=== PATIENT | male | born 1980 | race Caucasian/White ===

== ENCOUNTER 2016-10-27 19:48 | Inpatient (IN) | payer OTHER ==
[~2016-10-27] VITALS: Ht 177.8 cm; Wt 116.3 kg
[2016-10-27] MEDS ORDERED: Polyethylene Glycol (PEG) 17 Gm Powder PO PRN (21:20)
[2016-10-27] MEDS ORDERED: Senna-Docusate 8.6-50 mg Tablet PO PRN (21:20)
[2016-10-27] MEDS ORDERED: Alum-Mag Hydrox-Simeth 30 mL Suspension PO PRN (21:20)
[2016-10-27] MEDS ORDERED: DOPamine 800 mg/250 mL D5W 800,000 MCG in IV Premix 1 EACH IV SCH (21:25)
[2016-10-27] MEDS: DOPamine 800 mg/250 mL D5W 800,000 MCG in IV Premix 1 EACH IV SCH (21:26)
[2016-10-27 21:30] VITALS: BP 151/64; PULSE 72; RESP 18; O2SAT 95
[2016-10-27] MEDS ORDERED: MONT10TA23 PO (22:46)
[2016-10-27] MEDS ORDERED: FLUT15.88 NS (22:46)
[2016-10-27] MEDS ORDERED: ALBU8.5H2 INHALATION (22:46)
[2016-10-27] MEDS ORDERED: [UNRECOGNIZED DRUG - OTHER] PO (22:46)
[2016-10-27] MEDS ORDERED: MELO-253 PO (22:46)
[2016-10-27] MEDS ORDERED: ADV250INH IH (22:46)
[2016-10-27] MEDS ORDERED: LORA10CA PO (22:46)
[2016-10-27] MEDS ORDERED: [UNRECOGNIZED DRUG - OTHER] PO (22:46)
--- NOTE | 2016-10-27 23:21 | PCM.HPMED ---
Subjective Date of Service Oct 27, 2016 Primary Provider: Admitting Physician: Kevin Sanchez MD Primary Care Physician: Ananda Vang Attending Physician: Kevin Sanchez MD Admit Status: Direct Admit ([facility]) Chief Complaint: AV Block and syncopal episode History of Present Illness: Attial Paige is a 36 year old gentleman with a history of sleep apnea and asthma who presented to [facility] after a syncopal episode and was transferred to [facility] for further evaluation and management of AV Block. History obtained from the patient and via chart review. Patient denies prior history of syncope, chest pain or palpitations and states that this all happened quite suddenly. He states that around 2 pm he was at home playing video games when he developed what felt like a panic attack. He reports palpitations and chest discomfort and states that he stood up to go tell his and must have passed out. Because the next thing he remembers is lying on the floor. He denies loss of bladder or bowel control and reports some residual chest discomfort as well as mild pain related to an abrasion he sustained on his forehead. Denies fever, chills, dyspnea, focal weakness, abdominal pain, nausea, vomiting, diarrhea, constipation, dysuria, hematuria, unintentional weight loss or gain, and intolerance to heat or cold. He states that he recently returned from a road trip to [place] but otherwise has not traveled outside the [facility] or country recently. He reports rare/social alcohol use and denies marijuana or any other drugs. He does however report significant caffeine consumption: 6 cups of coffee per day mixed with protein powder and 1- 2 cans of soda. Denies energy drinks or additional caffeine intake. Of note he does report supplements for working out including: [employer]cle pharm assault, protein powder, and a new fat burner capsule for the past week but he is uncertain of the name. The patient reportedly had another syncopal episode in the ED prior to transfer and telemetry showed both extreme sinus jenny to a HR 30 but also a significant period of only P waves with no QRS and Dr. Ritter from Cardiology was consulted. Patient was started on dopamine prior to transfer as isoproterenol was not available. He was afebrile and hemodynamically stable prior to transfer with a BP of 131/59 and HR in the 60s. However, in route to [facility] the patient had recurrent symptomatic pauses noted on tele. LABS and IMAGING done prior to transfer were overall unremarkable. Troponin I and D-dimer negative. CBC, CMP and lipase within normal limits. Chest xray was normal and a cervical spine radiograph to evaluate neck pain secondary to the fall was also normal. EKG showed a NSR with rate 61, prolonged MN, normal QRS and no ST changes. Telemetry strip was significant for 3rd degree AVB and 10-15 sec pauses with only P waves with no QRS. Review of Systems: A comprehensive review of systems was conducted with the patient and found to be negative except as above in the History of Present Illness. Allergies Coded Allergies: No Known Allergies (Unverified , 10/27/16) Home Medications Albuterol Advair Cetirizine PMH Asthma-well controlled w/Advair & Albuterol Sleep apnea, intolerant to CPAP mask Pneumonia Surgical History Hypospadias repair Tympanostomy tubes Family History Denies family hx of heart disease, stroke, diabetes or cancer. Father- atrial fibrillation Mother- rheumatoid arthritis Brother- healthy Social History Hx Alcohol Use: Yes (Rarely) Hx Substance Use: No Hx Tobacco Use: No Smoking Status: Never Smoker Living Arrangement: with Family (Lives on [address] [facility] with his and two children. Works in [place] for the [employer]. ) Exam Vital Signs Per review of ED records from [facility] prior to transfer: Vitals 36.6 BP 131/59; 97/52, HR 67, 63, SpO2 94-99% room air Exam General: Well-appearing, overweight male who appears his stated age, in no acute distress, appropriately interactive HEENT: Normocephalic with a small erythematous area left side of forehead.PERRLA. No scleral icterus. Moist mucosa. Neck: Supple with full range of motion. No jugular venous distension, bruits or thyromegaly. Cardiovascular: Regular rate and rhythm with no murmurs, rubs, or gallops appreciated Pulmonary: Lungs mostly clear to auscultation bilaterally with faint wheezes heard on the left. No crackles. Abdomen: Bowel tones present. Soft, nontender, nondistended. No masses appreciated. Extremities: No edema, cyanosis or clubbing. Distal pulses equal bilaterally. Skin: Normal temperature, turgor, and texture with out rash or ulcerations. Neurological: CN II-XII grossly intact. Normal muscle strength, tone, and bulk. Reflexes, coordination, and sensory function within normal limits. No known gait impairment. Psychiatric: Normal mood and affect. Alert and oriented to person, place, and time. Lab and Diagnostics Labs LABS done at [facility] prior to transfer: CBC: WBC 6.4, RBC 4.75, Hb 15.3, Hct 43.2, MCV 91.0, Plt 166, Neut 3.4, Lymph 2.2, [place] 0.7, Eos 0.1 CMP: Sodium 137, potassium 4.1, chloride 103, bicarb 28, BUN 21, Creatinine 1.2 , eGFR 68, glucose 103, calcium 9.5, total bilirubin 0.9, AST 58, ALT 56, Albumin 5.0 troponin I < 0.04 Lipase 34 D-dimer < 200 (ref 200-255) X-Rays, CTs and MRIs IMAGING done at [facility] prior to transfer: Chest xray- 10/27/16 at 06:43pm: Normal chest xray. Cervical spine xray 10/27/16 06:43pm: Normal cervical spine radiograph 12-lead ECG EKG and telemetry readings at [facility]: EKG- 18:27: NSR with rate of 61, prolonged MN interval with normal QRS and no ST changes. Telemetry rhythm strip showed a 3rd degree AVB and 15sec pauses with only P waves and no QRS. Patient was reportedly symptomatic during these pauses. Assessment & Plan 36 year old gentleman with a history of sleep apnea and asthma transferred to [facility] for further evaluation and management of AV Block. AV Block. Present on admission. Active -Uncertain etiology. Possibilities to consider include: hyper- or hypothyroid, HCM or infiltrative cardiomyopathies, such as amyloidosis or sarcoidosis, and myocarditis due to a variety of causes including Lyme disease. Less likely ischemic in pt with low risk for CAD. Pt does have mother with rheumatoid arthritis. -Cardiology consulted from [facility]. Appreciate recommendations and expertise. -ECG, labs as above -Admitted to CCU on dopamine gtt and continuous cardiac monitoring -Pacer pads in place -NPO for possible procedures -Will check thyroid panel, Lyme's antibody Syncope, acute. Present on admission. Active -Secondary to heart block. -Monitoring and management as above Sleep apnea, chronic. Present on admission. Active. -Pt reports diagnosis ~9years ago, intolerant to CPAP mask. Has been trying to loose weight. -Continue supplemental oxygen as needed -Recommend close outpatient f/u and possible repeat sleep study. Asthma, chronic. Present on admission. Active. -Pt reports diagnosis of asthma in his early 20s, well controlled with Advair and Albuterol. Also reports seasonal allergies for which he takes Zyrtec. -Continue home inhaler -Supplemental oxygen as needed Hypertension. Present on admission. Active -Pt denies prior diagnosis or hx of hypertension. BP on arrival 150s systolic. -Continue cardiac/BP monitoring. -Hold additional antihypertensives for now -Appreciate Cardiology input and recommendations CODE STATUS: FULL CODE FEN: NPO for possible procedures IVF: NS at 100mls/hr DVT Prophylaxis: Sub-q Heparin, 5,000units Q8h PRN: Acetaminophen-fever/headache/mild/moderate pain Antiemetics, as needed Bowel regimen, as needed. Disposition: Patient admitted under inpatient status with expected length of stay > 2 midnights for severity of present symptoms, complexities of treatment plan and risk for adverse event. Pain Evaluation: Adequate Pain Control GI Prophylaxis: Not indicated VTE Prophylaxis Indicated: Meets Criteria for Anticoag Therapy VTE Prophylaxis: Sub-Q Heparin (Unfractionated) Resuscitation Status: CPR: Attempt Resuscitation Time spent 50 minutes critical care time spend Attending Statement The patient was seen and examined together with Dr. Chapa on 10/27 and I agree with the history, exam and plan as outlined in the note above. Nuzhat Chapa DO Oct 27, 2016 21:28 Kevin Sanchez MD Oct 28, 2016 04:38 Nuzhat Chapa DO Oct 27, 2016 21:28
[2016-10-28] VITALS (9 sets, daily range): BP systolic 109–131; BP diastolic 46–64; PULSE 53–67; RESP 15–19; O2SAT 95–98
[2016-10-28] MEDS: Heparin 5,000 Unit/mL Inj SUBQ SCH ×3 (00:30→16:34)
[2016-10-28] MEDS ORDERED: DOPamine 800 mg/250 mL D5W 800,000 MCG in IV Premix 1 EACH IV SCH (01:15)
[2016-10-28 03:14] LABS: BASOPHILS % (AUTO) 0.2 % (0-3)
[2016-10-28 03:23] LABS: EOSINOPHILS % (AUTO) 1.2 % (0-5); MONOCYTES % (AUTO) 11.5 % (4-12); Mean Corpuscular Hemoglobin 31.9 pg (27.0-35.0); NEUTROPHILS % (AUTO) 64.7 % (40-74); Platelet Count 191 bil/L (150-400)
--- NOTE | 2016-10-28 07:31 | NUR ---
CCU Admit Pt arrived from [facility] to CCU # [id number] approx at 2114. Pt A&O x3. Dopamine was infusing at 4 mcg. VSS. Dopamine off since 2299. No bradycardia or pauses noted. Admission assessment and screening completed. Med-Rec updated. Spouse at the bedside throughout the NOC providing support and comfort. No overt complications noted.
--- NOTE | 2016-10-28 09:55 | DRSVH ---
[facility] [address] [place] [address] Echocardiogram Report Name: MAAME CORNEJO WStudy Date: 10/28/2016 Height: 70 in Hospital Exam Location: [facility] Weight: 253 lb Gender: Male BSA: 2. 3 m2 : 1980 Age: 36 yrs BP: 121 /61 mmHg Reason For Study: AV BLOCK Ordering Physician: Lesley Fairbanks Performed By: Vikki Neil Referring Physician: DEACON BRIZUELA Interpretation Summary There is mild concentric left ventricular hypertrophy. Left ventricular systolic function is normal without focal wall motion abnormalities. The ejection fraction is estimated to be 55-60%. Assessment of diastolic parameters indicates normal left ventricular diastolic function and normal filling pressures. The right ventricle is normal in size, thickness and function. The right ventricular systolic pressure is estimated at least 29 mmHg assuming a right atrial pressure of 8 mm Hg. The left atrium is mildly dilated. The right atrium is mildly dilated. There is no significant valvular heart disease. The aortic root is normal size. Procedure: A two-dimensional transthoracic echocardiogram with color flow and Doppler was performed. The study quality was technically good. There is no prior echocardiogram noted for this patient. The patient was in normal sinus rhythm during the exam. Left Ventricle: The left ventricle is normal in size. There is mild concentric left ventricular hypertrophy. Left ventricular systolic function is normal without focal wall motion abnormalities. The ejection fraction is estimated to be 55-60%. Assessment of diastolic parameters indicates normal left ventricular diastolic function and normal filling pressures. Right Ventricle: The right ventricle is normal in size, thickness and function. Atria: The left atrium is mildly dilated. The right atrium is mildly dilated. There is no Doppler evidence for an interatrial shunt. Mitral Valve: The mitral valve is normal in structure and function. There is trace mitral regurgitation. Aortic Valve: The aortic valve is normal in structure and function. No aortic regurgitation is present. Tricuspid Valve: The tricuspid valve is normal. There is trace tricuspid regurgitation. The right ventricular systolic pressure is estimated at least 29 mmHg assuming a right atrial pressure of 8 mm Hg. Pulmonic Valve: The pulmonic valve leaflets are thin and pliable; valve motion is normal. There is a trace or physiologic amount of pulmonic regurgitation. There is no significant valvular heart disease. Great Vessels: The aortic root is normal size. The ascending aorta is normal in size. The aortic arch is normal in size. The pulmonary artery is not well visualized, but is probably normal size. The IVC is dilated (diameter is greater than 2.1 cm) yet it collapses greater than 50% with a sniff. This suggests a right atrial pressure of 8 mm Hg. Pericardium/ Pleura There is no pericardial effusion. There is no pleural effusion. MMode/2D Measurements & Calculations LVIDd: 4.9 cm RA long axis LVOT diam: 2.1 cm LVIDs: 3.1 cm LA A2 area: 24.6 cm AoV Opening FS: 36.5 % LA A4 area: 23.1 cm RA area EPSS: 0.12 cm LA length (vol) Ao root diam IVSd: 1.0 cm : 21.3 cm LVPWd: 1.3 cm LA vol: 91.1 ml RA vol asc Aorta Diam LA vol index : 80.1 ml RA Ao Arch Diam (Prox : 34.7 mm2 Trans): 2.7 cm IVC diam: 2.2 cm LV grant. diameter/BSA LV sys. diameter/BSA RVD1 (basal) RVD2 (mid): 3.5 cm (cm/m^2): 2.1 (cm/m^2): 1.3 TAPSE: 2.6 cm Doppler Measurements & Calculations Ao V2 max MV E max sampson MV E/A: 2.3 TR max sampson : 111.8 cm/sec : 106.6 cm/sec Med Peak E' Sampson : 230.9 cm/sec Ao max PG MV A max sampson TR max PG : 5.0 mmHg : 46.8 cm/sec E/E' med: 8.4 : 21.3 mmHg Ao mean PG MV P1/2t: 60.2 msec Lat Peak E' Sampson PA V2 max : 89.9 cm/sec LVOT Max Sampson E/E' lat: 5.6 PA mean PG : 97.7 cm/sec E/e' average: 7.0 : 1.7 mmHg CAROLINE(I,D): 2.9 cm sev ratio MV dec time MV P1/2t max sampson Ao V2 mean LV V1 max PG : 0.21 sec : 77.1 cm/sec MVA(P1/2t): 3.7 cm2 Ao V2 VTI: 24.2 cm LV V1 VTI CAROLINE(V,D): 3.0 cm2 : 20.4 cm PA V2 mean CAROLINE indexed to BSA : 60.9 cm/sec (cm^2/m^2): 1.3 PA pr(Accel) : 21.2 mmHg Reading Physician:ERIN
--- NOTE | 2016-10-28 10:23 | NUR ---
Social Work: Initial Assessment/Multidisciplinary Rounds D: Per EMR review, pt is a 36 year old male admitted for complete heart block syncope. Pt is [employer] insurance; pt has no LTC or VA benefits. PCP is through the [facility]. NOK is Yumiko Paige, , . Advanced directives completed- EEG TECHNOLOGIST requested copy for chart. Readmit score not entered at this time. Pt discussed in multidisciplinary rounds. Pt is on day 1 of stay. Capacity for self-care and d/c needs addressed; no concerns or d/c needs identified at this time. Pt is [employer] according to MD and is I at baseline. EEG TECHNOLOGIST met with the patient at bedside. Sw role explained; contact information and discharge planning checklist provided. Pt lives in [place] with his spouse and family. Pt is I at baseline, uses no DME and continues to drive. Pt has never had HH or skilled rehab. Pt lives in a two story home with several steps to enter. Pt and spouse anticipate no discharge needs but are receptive to d/c planning if needed. A: pt who is I at baseline. P: Anticipate discharge home via POV and no sw needs. EEG TECHNOLOGIST to continue to follow to assess for unmet d/c needs. MALIK Serra Addendum: 10/28/16 at 1035 by RAFAELA PEREZ Amended: Links added.
--- NOTE | 2016-10-28 10:35 | CONS ---
[address] [address] CONSULTATION REPORT PATIENT: MAAME CORNEJO : 1980 MR#: [id number] ADMIT: 10/27/2016 JOB ID: [id number] DATE OF SERVICE: 10/28/2016 SUBJECTIVE: The patient is a pleasant 36-year-old gentleman transferred from [facility] following recurrent episodes of syncope associated with both sinus node and AV node dysfunction. The patient has no past known cardiac history and has been generally very fit and physical treated for asthma predominantly with a number of medications. 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 This passed without event, and he attributed it to possible panic attack which he has had in the remote past. Yesterday afternoon he was feeling well and was playing video games with his kids when he developed a sense of mild nausea, generalized weakness, and a sense of precordial pressure-like chest discomfort. This did not feel similar to the event the previous day, but it was concerning enough that he got up to go upstairs to tell his , but became immediately syncopal. He woke up having just fallen to the floor and was feeling fine without any residual nausea or diaphoresis, but with a sense of mild precordial pressure-like chest discomfort. He spoke to his about it and had told her about the episode the prior day and for that reason, she took him to the emergency department at [facility]. The patient was attached to the monitor in the emergency department and stated that he asked his to leave and his child to leave because he could feel another episode coming on. He transiently lost consciousness and telemetry reports show sudden onset of a profound sinus bradycardia followed by a transient third degree heart block and resolution in normal sinus rhythm. Again this was preceded by a sense of precordial pressure-like discomfort and general weakness and a washed out feeling. He did not report symptoms of nausea during that episode and there was no apparent trigger. The decision was made to transport him by ambulance to [facility] and in the ambulance he had several episodes of near syncope associated with transient profound bradycardia, but by that time had been started up on dopamine therapy since Isuprel was not available there. Late last night his dopamine was discontinued. He has had no recurrent events or dysrhythmias through the night and feels well today, although continues to be aware of a mild sense of pressure-like substernal and precordial chest discomfort. The patient returned about three weeks ago from a vacation in [place]. There was a history of bug bites and whether not he had in fact actual erythema migrans is not clear. What is also not clear is whether or not he had any kind of febrile illness. He denies any problems with transient neurologic dysfunction, although he had a brief headache after he was syncopal at home associated with a slight rug burn on his face. He has had no arthralgias and no other neurologic symptoms. The patient is quite active physically. He lifts weights every morning. 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 The [employer] has him enrolled in an aerobic exercise program because they feel he is somewhat overweight, and he has been doing fairly strenuous aerobic exercises on a daily basis at the [employer] and is able to do so without exertional chest discomfort, lightheadedness, or significant symptoms of dyspnea. REVIEW OF SYSTEMS: Completely normal otherwise. He has had no bowel complaints. No genitourinary or renal problems. No arthralgias. No central nervous system changes. No prior history of syncope and no prior history of any cardiac symptomatology. He has just started a "fat burner capsule" about a week ago which is the only new medication for him, but we have looked up the ingredients in that and find no obvious cause for his transient bradyarrhythmias. PHYSICAL EXAMINATION: Shows a healthy-appearing muscular a 36-year-old male. He is 5 feet 10 inches tall and weighs 253 pounds, body mass index of 36.23. HEENT examination is notable for male pattern balding, otherwise negative. His jugular venous pressure is normal. His carotid upstroke is normal with no bruits. Lung thomas are clear. Cardiac auscultation is unremarkable. Heart tones are normal. No cardiac murmurs. No pericardial friction rub. Abdomen is soft, nontender. Normal bowel tones. Distal extremities are warm and well perfused. Distal pedal pulses are normal. He has no edema. No focal musculoskeletal or neurologic findings identified. DIAGNOSTIC STUDIES: Laboratory is notable for a mild increase in creatinine. His CBC is normal. His electrolytes are okay and his lipid profile and thyroid function are normal. Chest x-ray at [facility] was reported to be normal. He also had cervical spine x-rays there which were normal. IMPRESSION: The patient has a fairly sudden onset of recurrent transient marked bradyarrhythmias that appear to be predominantly vagal mediated. There is no obvious provoking vagal stimulus that can be discerned, but clearly his episodes are vagal mediated with the onset of significant sinus bradycardia and progressive and transient atrioventricular block. This is accompanied by somewhat atypical chest discomfort. His electrocardiogram is unremarkable and initial troponin level is normal and the likelihood of underlying obstructive coronary disease is small. One might wonder about the possibility of transient coronary artery spasm involving the right coronary artery affecting both sinoatrial and atrioventricular rojelio function though that seems a bit unlikely in the absence of previous history of recurrent episodes. It does not appear to be related to his recent drug supplements. The possibility of Lyme disease is interesting in potential given his recent trip to [place], his bug bites, and his transient atrioventricular block, although his intrinsic NH interval, might be expected to be more prolonged in the setting of myocardial involvement with Lyme disease. Echocardiogram is currently being performed and I will leave further thoughts once I have a chance to review that. It is encouraging that he has had no recurrent episodes, and I think if his serology for Lyme disease comes back abnormal, then perhaps appropriate antibiotic therapy should be instituted, and he can be monitored on telemetry for a given period of time. Typically atrioventricular rojelio issues associated with Lyme disease are temporary and transient and should not lead to permanent pacemaker therapy. Obviously if he has recurrent episodes and if no clearly identifiable cause for these events is identified consideration would need to be given to permanent pacemaker therapy though that of course is not something that we would entertain at this early stage.
--- NOTE | 2016-10-28 12:53 | NUR ---
Cardiac Pt SB 50s to SR 60s, no ectopy or pauses noted. Denies CP, dizziness/lightheadedness. Dr. Mcknight in to see pt, no plans for CV procedures. Pt now on heart healthy diet, tolerating PO well. Status changed to PCC with tele.
[2016-10-28 16:12] LABS: APPEARANCE,URINE CLEAR (CLEAR,HAZY); COLOR,URINE YELLOW (YELLOW); OCCULT BLOOD,URINE NEGATIVE (NEGATIVE); PH,URINE 5.5 (5.0-8.0); UROBILINOGEN,URINE NORMAL (NORMAL)
--- NOTE | 2016-10-28 18:57 | PCM.PNMED ---
Subjective Date of Service Oct 28, 2016 Subjective 36 year old gentleman with a history of sleep apnea and asthma transferred to [facility] for further evaluation and management of AV Block. Nursing reports no acute events overnight. Patient seen and examined. Has no complaints at this time. Denies CP, SOB, ABD pain, N/V/D, or headache. ROS reviewed and is otherwise negative unless noted above. @1330 pt c/o CP that came on suddenly, but quickly eased away. Repeat EKG and troponin ordered showing no acute changes. Exam Vital Signs Vital Sign - Last Date Time Temp Pulse Resp B/P Pulse Ox O2 Delivery O2 Flow Rate FiO2 10/28/16 16:00 37.7 60 18 113/47 96 Room Air 10/28/16 00:30 2.00 Intake and Output 10/27/16 10/27/16 10/28/16 Cumulative From/Thru 15:00 23:00 07:00 10/28/16 02:02 - 10/28/16 06:21 Intake Total 129 ml 129 ml Output Total 700 ml 700 ml Balance -571 ml -571 ml Intake Oral 100 ml 100 ml IV Total 29 ml 29 ml Output Urine Total 700 ml 700 ml Exam Constitutional: Awake, alert and oriented x3. In no acute distress. Head: normocephalic and atraumatic Eyes: Pupils equal round and reactive to light. EOMI. Heart: regular rate and rhythm. No murmurs. No peripheral edema. Lungs: Clear to auscultation. no wheeze, rales, or rhonchi ABD: soft, nontender, bowel sounds present throughout. Musculoskeletal: moves all four extremities appropriately. Able to walk around without assistance. Skin: warm, dry, and no rashes Neuro: CN II-XII intact. no focal deficits. Psych: appropriate mood and affect. IVs and Medications Medications Reviewed: Medications were reviewed in detail Lab and Diagnostics Item Value Date Time Red Blood Count 4.74 mil/mm3 10/28/16 030 Hematocrit 41.7 % 10/28/16 030 Mean Corpuscular Volume 88.0 fL 10/28/16 0300 Mean Corpuscular Hemoglobin 31.9 pg 10/28/16 030 Mean Corpuscular Hemoglobin Concent 36.2 % 10/28/16 030 Red Cell Distribution Width 11.8 % L 10/28/16 0300 Neutrophils (%) (Auto) 64.7 % 10/28/16 0300 Lymphocytes (%) (Auto) 22.2 % 10/28/16 0300 Monocytes (%) (Auto) 11.5 % 10/28/16 0300 Eosinophils (%) (Auto) 1.2 % 10/28/16 0300 Basophils (%) (Auto) 0.2 % 10/28/16 0300 Estimat Glomerular Filtration Rate 53 mL/min 10/28/16 0300 Calcium Level 9.3 mg/dL 10/28/16 0300 Total Bilirubin 0.7 mg/dL 10/28/16 0300 Aspartate Amino Transf (AST/SGOT) 46 U/L 10/28/16 0300 Alanine Aminotransferase (ALT/SGPT) 48 U/L H 10/28/16 0300 Alkaline Phosphatase 34 U/L 10/28/16 0300 Total Protein 6.8 g/dL 10/28/16 0300 Albumin 4.7 g/dL 10/28/16 0300 Triglycerides Level 98 mg/dL 10/28/16 0300 Cholesterol Level 192 mg/dL 10/28/16 0300 LDL Cholesterol, Calculated 122.400 mg/dL H 10/28/16 0300 VLDL Cholesterol 19.600 mg/dL 10/28/16 0300 HDL Cholesterol 50 mg/dL 10/28/16 0300 Troponin T < 0.010 ug/L 10/28/16 0300 Cholesterol/HDL Ratio 3.84 10/28/16 0300 Thyroid Stimulating Hormone (TSH) 0.915 uIU/mL 10/27/16 2344 Free Thyroxine 1.03 ng/dL 10/27/16 2344 Urine Opiates Screen Negative 10/28/16 1545 Urine Methadone Screen Negative 10/28/16 1545 Urine Barbiturates Screen Negative 10/28/16 1545 Urine Amphetamines Screen Negative 10/28/16 1545 Urine Benzodiazepines Screen Negative 10/28/16 1545 Urine Cocaine Metabolite Screen Negative 10/28/16 1545 Urine Cannabinoids Screen Negative 10/28/16 1545 Result Diagram: 10/28/16 0300 10/28/16 0300 Microbiology MRSA negative X-Rays, CTs and MRIs IMAGING done at [facility] prior to transfer: Chest xray- 10/27/16 at 06:43pm: Normal chest xray. Cervical spine xray 10/27/16 06:43pm: Normal cervical spine radiograph 12-lead ECG EKG and telemetry readings at [facility]: EKG- 18:27: NSR with rate of 61, prolonged [place] interval with normal QRS and no ST changes. Telemetry rhythm strip showed a 3rd degree AVB and 15sec pauses with only P waves and no QRS. Patient was reportedly symptomatic during these pauses. Cardiac Echo Impressions Echocardiogram Report Interpretation Summary There is mild concentric left ventricular hypertrophy. Left ventricular systolic function is normal without focal wall motion abnormalities. The ejection fraction is estimated to be 55-60%. Assessment of diastolic parameters indicates normal left ventricular diastolic function and normal filling pressures. Reading Physician:ERIN Assessment & Plan 36 year old gentleman with a history of sleep apnea and asthma transferred to [facility] for further evaluation and management of AV Block. AV Block. Present on admission. Active -Uncertain etiology. Possibilities to consider include:infiltrative cardiomyopathies, such as amyloidosis or sarcoidosis, and myocarditis due to a variety of causes including Lyme disease. Less likely ischemic in pt with low risk for CAD. Pt does have mother with rheumatoid arthritis. -Cardiology consulted from [facility]. Appreciate recommendations and expertise. -downgraded from CCU to PCC on tele -Removed dopamine gtt -continuous cardiac monitoring -Pacer pads in place -Heart Healthy diet -Lyme's antibody pending -TSH normal, echo mild concentric left ventricular hypertonicity. EF 55-60% Syncope, acute. Present on admission. Active -Secondary to heart block. -Monitoring and management as above Sleep apnea, chronic. Present on admission. Active. -Pt reports diagnosis ~9years ago, intolerant to CPAP mask. Has been trying to loose weight. -Continue supplemental oxygen as needed -Recommend close outpatient f/u and possible repeat sleep study. Asthma, chronic. Present on admission. Active. -Pt reports diagnosis of asthma in his early 20s, well controlled with Advair and Albuterol. Also reports seasonal allergies for which he takes Zyrtec. -Continue home inhaler -Supplemental oxygen as needed Hypertension. Present on admission. Active -Pt denies prior diagnosis or hx of hypertension. BP on arrival 150s systolic. -Continue cardiac/BP monitoring. -Hold additional antihypertensives for now -Appreciate Cardiology input and recommendations CODE STATUS: FULL CODE FEN: NPO for possible procedures IVF: NS at 100mls/hr DVT Prophylaxis: Sub-q Heparin, 5,000units Q8h PRN: Acetaminophen-fever/headache/mild/moderate pain Antiemetics, as needed Bowel regimen, as needed. Disposition: Patient admitted for AV Block without an identifiable cause, but has not had any irregular beats throughout the day. Patient has been downgraded to [facility], but remains on telemetry. Considering source of arrhythmia has not been readily identified, but is currently stable, patient will likely be discharged in the next 2-3 days. GI Prophylaxis: Not indicated VTE Prophylaxis: Sub-Q Heparin (Unfractionated) Resuscitation Status: CPR: Attempt Resuscitation Attending Statement The patient was seen and examined together with Dr. Dumont on 10/28/16 and I agree with the history, exam and plan as outlined in the note above. Alex Dumont DO Oct 28, 2016 18:57 Rin Woodward DO Nov 01, 2016 12:41
[2016-10-28] MEDS: DOPamine 800 mg/250 mL D5W 800,000 MCG in IV Premix 1 EACH IV SCH (20:26)
[2016-10-29] VITALS (10 sets, daily range): BP systolic 109–148; BP diastolic 43–80; PULSE 47–78; RESP 12–22; O2SAT 95–98
[2016-10-29] MEDS: Heparin 5,000 Unit/mL Inj SUBQ SCH ×3 (00:29→16:37)
--- NOTE | 2016-10-29 05:29 | NUR ---
Rhythm Stable: Pt stable throughout the night in a sinus bradycardia in the 40s to 50s while sleeping. Pt's HR occasionally noted to briefly hit the high 30s (unsustained). No complaints per pt other than a slight headache at the start of the shift, which pt denied any intervention. No further complaints or concerns. Will cont. to monitor.
--- NOTE | 2016-10-29 14:39 | PCM.PNMED ---
Subjective Date of Service Oct 29, 2016 Subjective 36 year old gentleman with a history of sleep apnea and asthma transferred to [facility] for further evaluation and management of AV Block. Nursing reports no acute events overnight. Patient seen and examined. Standing at bedside. Denies any CP, SOB, ABD pain, N/V/D, or Headache. Is eating well. Making good urine and has had a bowel movement in the last 24 hours. ROS reviewed and is otherwise negative unless noted above. Exam Vital Signs Vital Sign - Last Date Time Temp Pulse Resp B/P Pulse Ox O2 Delivery O2 Flow Rate FiO2 10/29/16 12:30 52 12 118/51 95 Room Air 10/29/16 07:35 36.6 10/28/16 00:30 2.00 Intake and Output 10/28/16 10/28/16 10/29/16 Cumulative From/Thru 15:00 23:00 07:00 10/28/16 02:02 - 10/29/16 05:39 Intake Total 550 ml 679 ml Output Total 1200 ml 1900 ml Balance -650 ml -1221 ml Intake Oral 550 ml 650 ml IV Total 29 ml Output Urine Total 1200 ml 1900 ml # Bowel Movements 0 0 Exam Constitutional: awake, alert and oriented x4. In no acute distress. Head: Normocephalic and atraumatic Eyes: EOMI, Pupils equal round and reactive. [place] conjunctiva Heart: Regular rate and rhythm. No murmurs. No peripheral edema. Lungs: clear to auscultation. No wheeze, rales, or rhonchi ABD: soft, nontender. bowel sounds present throughout Musculoskeletal: moves all four extremities. Walking around room without assistance. Neuro: CN II-XII intact. No focal deficits. Skin: warm, dry, no rash. Psych: appropriate mood and affect. IVs and Medications Medications Reviewed: Medications were reviewed in detail Lab and Diagnostics Result Diagram: 10/28/16 0300 10/28/169 Microbiology MRSA negative X-Rays, CTs and MRIs IMAGING done at [facility] prior to transfer: Chest xray- 10/27/16 at 06:43pm: Normal chest xray. Cervical spine xray 10/27/16 06:43pm: Normal cervical spine radiograph 12-lead ECG EKG and telemetry readings at [facility]: EKG- 18:27: NSR with rate of 61, prolonged [place] interval with normal QRS and no ST changes. Telemetry rhythm strip showed a 3rd degree AVB and 15sec pauses with only P waves and no QRS. Patient was reportedly symptomatic during these pauses. Cardiac Echo Impressions Echocardiogram Report Interpretation Summary There is mild concentric left ventricular hypertrophy. Left ventricular systolic function is normal without focal wall motion abnormalities. The ejection fraction is estimated to be 55-60%. Assessment of diastolic parameters indicates normal left ventricular diastolic function and normal filling pressures. Reading Physician:ERIN Assessment & Plan 36 year old gentleman with a history of sleep apnea and asthma transferred to [facility] for further evaluation and management of AV Block. AV Block. Present on admission. Active -Uncertain etiology. Possibilities to consider include:infiltrative cardiomyopathies, such as amyloidosis or sarcoidosis, and myocarditis due to a variety of causes including Lyme disease. Less likely ischemic in pt with low risk for CAD. Pt does have mother with rheumatoid arthritis. -Cardiology following (Dr. Hernandez) -Continue tele -Heart Healthy diet -Lyme's antibody pending -EKG reviewed currently NSR. -echo mild concentric left ventricular hypertonicity. EF 55-60% - Cardiology following and awaiting lyme results. Considering need for pacemaker placement. Would like to continue to watch overnight. Syncope, acute. Present on admission. Resolved -Secondary to heart block. -Monitoring and management as above Sleep apnea, chronic. Present on admission. Stable. -Pt reports diagnosis ~9years ago, intolerant to CPAP mask. Has been trying to loose weight. -Continue supplemental oxygen as needed -Recommend close outpatient f/u and possible repeat sleep study. Asthma, chronic. Present on admission. Stable. -Pt reports diagnosis of asthma in his early 20s, well controlled with Advair and Albuterol. Also reports seasonal allergies for which he takes Zyrtec. -Continue home inhaler -Supplemental oxygen as needed Hypertension. Present on admission. Resolved -Pt denies prior diagnosis or hx of hypertension. BP on arrival 150s systolic. -Continue cardiac/BP monitoring. -Hold additional antihypertensives for now -Appreciate Cardiology input and recommendations CODE STATUS: FULL CODE FEN:Heart Healthy Diet DVT Prophylaxis: Sub-q Heparin, 5,000units Q8h PRN: Acetaminophen-fever/headache/mild/moderate pain Antiemetics, as needed Bowel regimen, as needed. Disposition: Patient admitted for AV Block without an identifiable cause, but has not had any irregular beats throughout the day. Patient has been downgraded to PCC, but remains on telemetry. Considering source of arrhythmia has not been readily identified, but is currently stable. Cardiology is continuing their workup and plan for patient. Patient will likely be discharged home in the next 2-3 days. GI Prophylaxis: Not indicated VTE Prophylaxis: Sub-Q Heparin (Unfractionated) Resuscitation Status: CPR: Attempt Resuscitation Attending Statement The patient was seen and examined together with Dr. Dumont on 10/29/16 and I have added additional information to the note above. Alex Dumont DO Oct 29, 2016 14:39 Rin Woodward DO Oct 29, 2016 19:54
--- NOTE | 2016-10-29 18:00 | NUR ---
Status Pt had uneventful shift, VSS. Will continue to monitor.
[2016-10-29] MEDS: DOPamine 800 mg/250 mL D5W 800,000 MCG in IV Premix 1 EACH IV SCH (21:26)
[2016-10-30] MEDS: Heparin 5,000 Unit/mL Inj SUBQ SCH ×2 (00:44→09:07)
[2016-10-30 03:21] VITALS: BP 108/51; PULSE 48; RESP 16; O2SAT 96
--- NOTE | 2016-10-30 05:04 | NUR ---
Tele/Activity Tele S-Bradyas low as 36 .as high as 70. On room air, peripheral; IV left lower arm. A&O x3 using call light appropriately, Ambulating reyes at will .
[2016-10-30 05:43] LABS: Mean Corpuscular Volume 88.5 fL (81-100)
[2016-10-30 05:56] VITALS: PULSE 59
[2016-10-30 07:50] VITALS: PULSE 58
[2016-10-30 08:00] VITALS: PULSE 53
[2016-10-30 08:34] VITALS: BP 119/52; PULSE 54; RESP 14; O2SAT 98
--- NOTE | 2016-10-30 10:50 | PCM.DIMED ---
Alex Dumont DO 10/30/16 1050: Discharge Instructions Date of Service Oct 30, 2016 Dates of Hospitalization Oct 27, 2016 at 21:10 Discharge Diagnosis Discharge Diagnosis AV Block Syncope Sleep apnea Asthma Hypertension Test Results Test Results Your echocardiogram showed mild heart muscle thickening, but normal heart pumping and blood output. Diet Discharge Diet: No restrictions Activity Discharge Activity: Limited until seen by PCP Call your provider Call your provider for: Fever or Chills, Shortness of breath, Bleeding, Chest pain, Vomitting, Excessive diarrhea, Weakness (unilateral) Patient Instructions Patient Instructions No high intensity cardiovascular workouts until cleared by your co founder and cto. No weight training until cleared by cardiology. Walking is permissible, no faster than 3.5 mph. Since you have had a syncopal event (you passed out), [facility] Law prohibits any driving for the next 6 (six) months provided that you do not have any additional syncopal events. Do not use any "pre-workout" powders until cleared by your co founder and cto. You may still use basic protein powder, if they do not contain "pre-workout" or caffeine additives. Avoid high consumption of caffeine (coffee, tea, soda). You may have no more than one cup of coffee a day until cleared by your co founder and cto. Follow-up plan Follow up with your co founder and cto Dr. Alek Bonilla, in the next two weeks. Follow-up Provider: Alek Nielsen MD Follow-up with PCP in: 2 weeks Rin Woodward DO 10/30/16 1555: Discharge Instructions Attending's Statement The patient was seen and examined together with Dr. Dumont on 10/30/16 and I agree with the history, exam and plan as outlined in the note above. Alex Dumont DO Oct 30, 2016 10:50 Rin Woodward DO Oct 30, 2016 15:55
--- NOTE | 2016-10-30 11:31 | NUR ---
Social Work: Discharge Data: Pt is on day 3 of hospitalization. EMR reviewed, pt discussed in multidisciplinary rounds. MD states pt likely to d/c today. D/C orders now in. No d/c planning needs identified at this time. [employer] will continue to follow if needs arise. Assessment: Pt who is independent at baseline. Plan: Pt will d/c home via POV today. No d/c planning needs identified at this time. [employer] will continue to follow if needs arise. AMLIK Marcum
--- NOTE | 2016-10-30 13:49 | NUR ---
Discharge 12:45 Discharge teaching done. Answered questions. Given discharge instruction. Patient denied having pain. IV line disconnected intact, skin was intact no signs of redness or infection. Patient was accompanied with his and escorted by associate of science in nursing to their car. Took all his belongings with him. Given work restriction note signed by the Doctor. They thanked staff for all their care.
--- NOTE | 2016-10-30 17:01 | PCM.DC.MED ---
Discharge Summary Date of Service Oct 30, 2016 Dates of Hospitalization Date of Hospital Admission Oct 27, 2016 at 21:10 Date of Discharge: Oct 30, 2016 Providers: Admitting Physician: Kevin Sanchez MD Primary [facility] Phys[facility] Attending Physician: Rin Woodward DO Diagnosis at Time of Discharge Diagnosis at Time of Discharge AV Block Syncope Sleep apnea Asthma Hypertension Consultations Cardiology- Dr. Mcknight Procedures XRay, CTs & MRIs IMAGING done at [facility] prior to transfer: Chest xray- 10/27/16 at 06:43pm: Normal chest xray. Cervical spine xray 10/27/16 06:43pm: Normal cervical spine radiograph ECG 12 Lead EKG and telemetry readings at [facility]: EKG- 18:27: NSR with rate of 61, prolonged DC interval with normal QRS and no ST changes. Telemetry rhythm strip showed a 3rd degree AVB and 15sec pauses with only P waves and no QRS. Patient was reportedly symptomatic during these pauses. Cardiac Echo Impression Echocardiogram Report Interpretation Summary There is mild concentric left ventricular hypertrophy. Left ventricular systolic function is normal without focal wall motion abnormalities. The ejection fraction is estimated to be 55-60%. Assessment of diastolic parameters indicates normal left ventricular diastolic function and normal filling pressures. Reading Physician:ERIN Brief History Attila Paige is a 36 year old gentleman with a history of sleep apnea and asthma who presented to [facility] after a syncopal episode and was transferred to [facility] for further evaluation and management of AV Block. History obtained from the patient and via chart review. Patient denies prior history of syncope, chest pain or palpitations and states that this all happened quite suddenly. He states that around 2 pm he was at home playing video games when he developed what felt like a panic attack. He reports palpitations and chest discomfort and states that he stood up to go tell his and must have passed out. LABS and IMAGING done prior to transfer were overall unremarkable. Troponin I and D-dimer negative. CBC, CMP and lipase within normal limits. Chest xray was normal and a cervical spine radiograph to evaluate neck pain secondary to the fall was also normal. EKG showed a NSR with rate 61, prolonged DC, normal QRS and no ST changes. Telemetry strip was significant for 3rd degree AVB and 10-15 sec pauses with only P waves with no QRS. Patient received echocardiogram that revealed mild concentric ventricular hypertrophy with an EF of 60-65%. Patient remained on telemetry overnight. He was asymptomatic for greater than 24 hours. Repeat EKG and troponins were negative. Cardiology cleared patient for discharge due to lack of symptoms and no EKG changes. Patient was discharged home with a close followup with cardiology in the next two weeks. Patient was instructed to not do any types of workouts until cleared by cardiology, refrain from driving for six months, and avoid any excess caffeine until cleared by cardiology. Hospital Course 36 year old gentleman with a history of sleep apnea and asthma transferred to [facility] for further evaluation and management of AV Block. AV Block -Cardiology following (Dr. Hernandez) -Continued tele -Started Heart Healthy diet -Lyme's antibody pending -EKG reviewed currently NSR. -echo mild concentric left ventricular hypertonicity. EF 55-60% Syncope -Monitored and management as above Sleep apnea -Gave supplemental oxygen as needed -Recommend close outpatient f/u and possible repeat sleep study. Asthma, chronic -Continued home inhaler -Gave Supplemental oxygen as needed Hypertension -Continued cardiac/BP monitoring. -Held additional antihypertensives for now Exam Vital Signs (Last) Date Time Temp Pulse Resp B/P Pulse Ox O2 Delivery O2 Flow Rate FiO2 10/30/16 08:34 36.6 54 14 119/52 98 Room Air 10/28/16 00:30 2.00 Exam Constitutional: awake, alert and oriented x4. In no acute distress. Head: Normocephalic and atraumatic Eyes: EOMI, Pupils equal round and reactive. Ericson conjunctiva Heart: Regular rate and rhythm. No murmurs. No peripheral edema. Lungs: clear to auscultation. No wheeze, rales, or rhonchi ABD: soft, nontender. bowel sounds present throughout Musculoskeletal: moves all four extremities. Walking around room without assistance. Neuro: CN II-XII intact. No focal deficits. Skin: warm, dry, no rash. Psych: appropriate mood and affect. Test 10/27/16 23:10 10/27/16 23:11 10/27/16 23:32 10/27/16 23:44 Hold Purple Top Tube Received (Received) Hold Blue Top Tube Received (Received) Hold Red Top Tube Received (Received) Hold [place] Top Tube Received (Received) Hold [place] Top Tube Received (Received) Thyroid Stimulating Hormone (TSH) 0.915uIU/mL (0.450-4.500) Free Thyroxine 1.03ng/dL (0.82-1.77) Test 10/28/16 03:00 10/28/16 15:45 10/30/16 04:55 Neutrophils (%) (Auto) 64.7% (40-74) Lymphocytes (%) (Auto) 22.2% (14-46) Monocytes (%) (Auto) 11.5% (4-12) Eosinophils (%) (Auto) 1.2% (0-5) Basophils (%) (Auto) 0.2% (0-3) Troponin T < 0.010ug/L (0.0-0.011) Triglycerides Level 98mg/dL (0-149) Cholesterol Level 192mg/dL (100-199) LDL Cholesterol, Calculated 122.400mg/dL (0-99) VLDL Cholesterol 19.600mg/dL HDL Cholesterol 50mg/dL (>39) Cholesterol/HDL Ratio 3.84 (0.0-4.4) Urine Color Yellow (YELLOW) Urine Appearance Clear (CLEAR,HAZY) Urine pH 5.5 (5.0-8.0) Urine Specific [place] 1.025 (1.003-1.035) Urine Protein Negativemg/dL (NEG,TRACE) Urine Glucose (UA) Negativemg/dL (NEGATIVE) Urine Ketones Negativemg/dL (NEGATIVE) Urine Occult Blood Negative (NEGATIVE) Urine Nitrite Negative (NEGATIVE) Urine Bilirubin Negative (NEGATIVE) Urine Urobilinogen Normalmg/dL (NORMAL) Urine Leukocyte Esterase Negative (NEGATIVE) Urine RBC 0-2/hpf (0-2) Urine WBC 0-5/hpf (0-5) Urine Epithelial Cells Few/hpf (NONE-MOD) Urine Crystals None seen (NONE SEEN) Urine Bacteria None/hpf (NONE-FEW) Urine Hyaline Casts None/lpf (NONE) Urine Granular Casts None seen (NONE SEEN) Urine Waxy Casts None seen (NONE SEEN) Urine Red Blood Cell Casts None seen (NONE SEEN) Urine White Blood Cell Casts None seen (NONE SEEN) Urine Mucus Nn (None Seen) Urine Trichomonas None seen (NONE SEEN) Urine Yeast None (NONE SEEN) Urinalysis Comment None Urine Opiates Screen Negative Urine Methadone Screen Negative Urine Barbiturates Screen Negative Urine Amphetamines Screen Negative Urine Benzodiazepines Screen Negative Urine Cocaine Metabolite Screen Negative Urine Cannabinoids Screen Negative White Blood Count 4.9th/mm3 (3.8-10.1) Red Blood Count 4.60mil/mm3 (4.40-5.80) Hemoglobin 14.7g/dL (13.8-17.2) Hematocrit 40.7% (41.0-50.0) Mean Corpuscular Volume 88.5fL (81-100) Mean Corpuscular Hemoglobin 32.0pg (27.0-35.0) Mean Corpuscular Hemoglobin Concent 36.1% (32.0-37.0) Red Cell Distribution Width 11.6% (12.3-15.4) Platelet Count 179bil/L (150-400) Sodium Level 139mEq/L (134-144) Potassium Level 4.4mEq/L (3.5-5.2) Chloride Level 107mEq/L (97-108) Carbon Dioxide Level 21mmol/L (18-29) Blood Urea Nitrogen 21mg/dL (6-20) Creatinine 0.98mg/dL (0.76-1.27) Estimat Glomerular Filtration Rate 91mL/min (>59) Glucose Level 99mg/dL (60-99) Calcium Level 8.8mg/dL (8.5-10.1) Total Bilirubin 0.3mg/dL (0.0-1.2) Aspartate Amino Transf (AST/SGOT) 25U/L (0-50) Alanine Aminotransferase (ALT/SGPT) 36U/L (0-44) Alkaline Phosphatase 30U/L (25-150) Total Protein 6.2g/dL (6.4-8.4) Albumin 4.2g/dL (3.4-5.0) Microbiology Results MRSA negative Discharge Medications Discharge Medications ([Mp [employer]clepharm]) 2 CUPDRY PO BID (Reported) ([Evl]) 2 TAB PO DAILY (Reported) ([Mp Combat]) 2 CUPLQ PO DAILY (Reported) Fluticasone Propionate (Fluticasone Propionate) 50 Mcg/Actuation [place].susp 1 SPRAY NS DAILY (Reported) Fluticasone/Salmeterol (Advair 250-50 Diskus) 60 Puff/Inh Disk 1 PUFF IH DAILY ( Reported) Loratadine (Claritin) 10 Mg Capsule 10 MG PO DAILY (Reported) Meloxicam (Meloxicam) 15 Mg Tablet 15 MG PO DAILY (Reported) Montelukast (Montelukast) 10 Mg Tablet 10 MG PO DAILY (Reported) As needed Albuterol HFA (Proair HFA) 8.5 Gm Hfa.aer.ad 2 PUFFS INHALATION Q4H PRN PRN For Shortness of Breath (Reported) Followup Plan Disposition: Home Follow-up plan Follow up with your barker operator Dr. Alek Bonilla, in the next two weeks. Discharge Diet: No restrictions Discharge Activity: Limited until seen by PCP Patient Instructions No high intensity cardiovascular workouts until cleared by your barker operator. No weight training until cleared by cardiology. Walking is permissible, no faster than 3.5 mph. Since you have had a syncopal event (you passed out), [facility] Law prohibits any driving for the next 6 (six) months provided that you do not have any additional syncopal events. Do not use any "pre-workout" powders until cleared by your barker operator. You may still use basic protein powder, if they do not contain "pre-workout" or caffeine additives. Avoid high consumption of caffeine (coffee, tea, soda). You may have no more than one cup of coffee a day until cleared by your barker operator. Follow-up Provider: Alek Nielsen MD Follow-up with PCP in: 2 weeks Time spent Greater than 35 minutes preparing disposition, organizing discharge, and discussing with patient and family. Attending Statement The patient was seen and examined together with Dr. Dumont on 10/30/16 and I have added additional information to the note above. copies to: Alek Nielsen MD, Anthony P DO Oct 30, 2016 17:01 Rin Woodward DO Oct 31, 2016 13:37 As needed Albuterol HFA (Proair HFA) 8.5 Gm Hfa.aer.ad 2 PUFFS INHALATION Q4H PRN PRN For Shortness of Breath (Reported) Followup Plan Follow-up plan Follow up with your barker operator Dr. Alek Bonilla, in the next two weeks. Discharge Diet: No restrictions Discharge Activity: Limited until seen by PCP Patient Instructions No high intensity cardiovascular workouts until cleared by your barker operator. No weight training until cleared by cardiology. Walking is permissible, no faster than 3.5 mph. Since you have had a syncopal event (you passed out), [facility] Law prohibits any driving for the next 6 (six) months provided that you do not have any additional syncopal events. Do not use any "pre-workout" powders until cleared by your barker operator. You may still use basic protein powder, if they do not contain "pre-workout" or caffeine additives. Avoid high consumption of caffeine (coffee, tea, soda). You may have no more than one cup of coffee a day until cleared by your barker operator. Follow-up Provider: Alek Nielsen MD Follow-up with PCP in: 2 weeks Alex Dumont DO Oct 30, 2016 17:01
== END 2016-10-30 12:45 | disposition home or self-care (01) | DRG 310 ==
LOC: PCC 21:10 → CCU 21:16 → PCC 10-28 11:36
PROVIDERS: ADMIT Hospitalist; ATTEND Hospitalist
DX: I44.2 Atrioventricular block, complete (principal); G47.33 Obstructive sleep apnea (adult) (pediatric); J45.909 Unspecified asthma, uncomplicated; I49.8 Other specified cardiac arrhythmias; I10 Essential (primary) hypertension